=== PATIENT | female | born 1970 | race Caucasian/White ===

== ENCOUNTER 2021-11-12 11:02 | Emergency (ER) | payer OTHER, SELFPAY ==
--- NOTE | ~2021-11-12 | XR_ITS ---
EXAMINATION: [id number] EXAM DATE: 11/12/2021 11:57 INDICATION: Initial encounter following injury, with pain of the cervical spine. Left-sided neck pain . TECHNIQUE: Cervical spine frontal, lateral, lateral swimmers, and open-mouth odontoid projections. There is no prior study for comparison. FINDINGS: There is no evidence of acute cervical fracture. The odontoid process is intact. Pre-dens space is normal. Prevertebral soft tissue is normal. There are no soft tissue abnormalities identi fied. Mild cervical disc disease and arthropathy. The vertebral bodies are aligned. Lung apices a re clear. IMPRESSION: 1. No acute cervical findings. 2. Mild cervical spondylosis. Reviewed, dictated and finalized at location A.
[2021-11-12 11:20] VITALS: BP 142/78; PULSE 63; RESP 18; TEMP 36.7; O2SAT 100
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
== END 2021-11-12 12:20 | disposition home or self-care (01) ==
PROVIDERS: Emergency Provider Registered Nurse
DX: S16.1XXA Strain of muscle, fascia and tendon at neck level, initial encounter (principal); W21.02XA Struck by soccer ball, initial encounter; Y99.0 Civilian activity done for income or pay
CPT/HCPCS: 72040; 99203; G0463